=== PATIENT | female | born 1980 | race Two or more races ===

== ENCOUNTER → 2016-10-24 | Outpatient (CLI) | payer OTHER ==
[2016-10-24 08:18] LABS: ABSOLUTE EOSINOPHILS # (AUTO) 0.1 10^3/uL (0.0-0.6); ABSOLUTE LYMPHOCYTES (AUTO) 1.6 10^3/uL (0.5-4.7); ABSOLUTE MONOCYTES (AUTO) 0.3 10^3/uL (0.1-1.4); ABSOLUTE NEUT (AUTO) 4.1 10^3/uL (1.7-8.2); BASOPHILS % (AUTO) 0.6 % (0-2); EOSINOPHILS % (AUTO) 1.2 % (0-6); HEMATOCRIT 36.7 % (36.0-47.0); HEMOGLOBIN 12.3 g/dL (12.0-15.5); HGB HCT DIFFERENCE 0.2; LYMPHOCYTES % (AUTO) 26.5 % (13-45); MEAN CORPUSCULAR HEMOGLOBIN 28.9 pg (27.0-33.4); MEAN CORPUSCULAR HGB CONC 33.6 g/dL (32.0-36.0); MEAN CORPUSCULAR VOLUME 86 fl (80-97); MONOCYTES % (AUTO) 5.3 % (3-13); RED BLOOD COUNT 4.26 10^6/uL (3.72-5.28); RED CELL DISTRIBUTION WIDTH 13.7 % (11.5-14.0); SEGMENTED NEUTROPHILS % (AUTO) 66.4 % (42-78); WHITE BLOOD COUNT 6.2 10^3/uL (4.0-10.5)
[2016-10-24 08:40] LABS: ALANINE AMINOTRANSFERASE 30 U/L (9-52); ALKALINE PHOSPHATASE 41 U/L (38-126); ANION GAP 8 (5-19); ASPARTATE AMINO TRANSFERASE 22 U/L (14-36); BILIRUBIN,DIRECT 0.3 mg/dL (0.0-0.4); BILIRUBIN,TOTAL 0.5 mg/dL (0.2-1.3); BLOOD UREA NITROGEN 20 mg/dL (7-20); CALCIUM 9.5 mg/dL (8.4-10.2); CARBON DIOXIDE 28 mmol/L (22-30); CHLORIDE 103 mmol/L (98-107); CHOLESTEROL 146.47 mg/dL (0-200); CREATININE RESULT 0.69 mg/dL (0.52-1.25); Direct HDL 68 mg/dL (>40); GLUCOSE 92 mg/dL (75-110); POTASSIUM 4.5 mmol/L (3.6-5.0); SODIUM 138.5 mmol/L (137-145); TOTAL PROTEIN 6.5 g/dL (6.3-8.2); TRIGLYCERIDES 70 mg/dL (<150)
[2016-10-24 08:51] LABS: DIRECT LDL 58 mg/dL (<100)
== END ==
LOC: OD 07:29
PROVIDERS: ATTEND Psychiatry & Neurology Psychiatry
DX: F90.2 Attention-deficit hyperactivity disorder, combined type (principal)
CPT/HCPCS: 36415; 80053; 80061; 84443; 85025